=== PATIENT | female | born 1970 | race Caucasian/White ===

== ENCOUNTER → 2018-09-01 11:05 | Outpatient (CLI) | payer OTHER, SELFPAY ==
--- NOTE | 2018-09-01 11:25 | VDLE_ITS ---
Reason For Study: pain RIGHT LEFT GSV is normal. CFV is compressible, spontaneous, phasic, CFV is compressible, spontaneous, phasic, competent, and demonstrates normal competent and demonstrates normal augmentation. augmentation. FV is compressible, spontaneous, phasic, competent and demonstrates normal augmentation. POP V is compressible, spontaneous, phasic, competent and demonstrates normal augmentation. T/P Trunk is compressible. PTV is compressible. RT PerV is compressible. Procedure Exam performed in department. The exam was diagnostic. A preliminary report was called and/or faxed to Dr. Acuña. Interpretation Summary Deep veins of the right lower extremity are patent and compressible segmentally. There is no evidence of right lower extremity deep vein thrombosis. Valvular competence appears intact within the proximal deep venous system on the right . The right greater saphenous vein appears patent and compressible segmentally. Ordering Physician: Blair Acuña Performed By: Dominic Emerson RVT
== END ==
PROVIDERS: Family Provider Family Medicine; PCP Family Medicine; Referring Provider Orthopaedic Surgery; Visit Provider Orthopaedic Surgery
DX: M79.604 Pain in right leg (principal)
CPT/HCPCS: 93971

== ENCOUNTER → 2020-07-25 | Outpatient (CLI) | payer OTHER, SELFPAY ==
[2020-07-25 09:48] VITALS: BMI 42.3
[2020-07-25 11:04] LABS: ALB/GLOB Ratio 0.9 RATIO (0.9-2.4); AST(SGOT) 20 U/L (15-37); Alanine Aminotransfer ALT/SGPT 29 U/L (13-56); Albumin, Serum 3.9 g/dL (3.2-5.0); Alkaline Phosphatase 68 U/L (45-117); Anion Gap 6 (5-15); BUN 12 mg/dL (7-18); BUN/Creat Ratio 14.8 RATIO (10-20); Calcium,Total 8.8 mg/dL (8.5-10.1); Chloride 104 mmol/L (98-107); Cholesterol 285 mg/dL (200); Creatinine, Serum 0.81 mg/dL (0.55-1.02); EST Glomerular Filtration Rate 80 mL/min (>60); Est Glom Filt Rate - Afr Amer 97 mL/min (>60); Globulin 4.3 g/dL (2.2-4.2); Glucose 100 mg/dL (74-106); High Density Lipoprotein 38 mg/dL; Protein, Total 8.2 g/dL (6.4-8.2); Sodium Level 138 mmol/L (136-145); Triglycerides 334 mg/dL; Very Low Density Lipoprotein 67 mg/dL (5-40)
== END | disposition home or self-care (01) ==
LOC: LAB 10:14
PROVIDERS: PCP Family Medicine; Referring Provider Family Medicine; Visit Provider Family Medicine
DX: E78.5 Hyperlipidemia, unspecified (principal)
CPT/HCPCS: 36415; 80053; 80061

== ENCOUNTER 2020-10-23 12:10 | Emergency (ER) | payer OTHER, SELFPAY ==
[2020-07-25 09:48] VITALS: BMI 42.3
[2020-10-23] VITALS (7 sets, daily range): BP systolic 112–141; BP diastolic 62–101; PULSE 80–99; RESP 14–21; TEMP 36.9–37.2; O2SAT 94–96; BMI 42.5
--- NOTE | 2020-10-23 12:24 | CT_ITS ---
STUDY: CTA CHEST REASON FOR EXAM: Female, 50 years old. SOB, FEVER, FATIGUE, +COVID RADIATION DOSAGE (If Supplied By Facility): CTDIvol = ( 15.04 ) mGy, DLP = ( 466.14 ) mGycm TECHNIQUE: The examination was performed with the intravenous administration of IV 100mL Isovue-370. Post-processing of the angiographic images was performed, with multiplanar reformation and 3D reconstruction. Individualized dose optimization techniques were used for this CT. COMPARISON: None. FINDINGS: Normal enhancement of the main pulmonary artery and right and left pulmonary arteries. Normal enhancement of the bilateral peripheral pulmonary arteries. There is no demonstrated pulmonary embolism. Normal thoracic aorta and visualized great vessels. There is no demonstrated aortic dissection. Normal heart and pericardium. There are visualized mediastinal lymph nodes, which are within normal size limits, and with normal morphology. Normal hilar regions. Normal visualized trachea and bronchi. The lungs are well expanded. Patchy areas of groundglass appearance are seen in the preferential lateral distribution involving both upper and lower lobes bilaterally slightly worse on the right side. This is in keeping with Covid 19 Pneumonic infiltrates. Patchy atelectasis and/or infiltrate seen at the lung bases as well. Normal pleura. Normal chest wall structures. Normal osseous structures. Normal visualized upper abdomen. CT/CTA Chest W/WO Contrast IMPRESSION: Patchy areas of groundglass appearance in a preferentially lateral distribution involving both lungs as described. This is suggestive of Covid 19 pneumonic process. Electronically Signed: Sonido Rai, at 15:00 EST , Service support ,
--- NOTE | 2020-10-23 12:26 | ED.DCSUM_ITS ---
History of Present Illness Informant: Patient Onset: Days Context: Gradual Onset Timing: Continuous Current Severity: Moderate Maximum Severity: Moderate Narrative: Patient is a 50-year-old female is otherwise healthy the presents to the emergency department shortness of breath. Patient states that she began with Covid symptoms about 10 days ago. She tested positive on Friday. She states s he felt like she was starting to turn the corner over the weekend. However, today, she states that she had rather significant shortness of breath. She states she felt like she cannot catch her breath and was having coughing fits. She also admits to pain when she takes a deep breath. She is still been having intermittent fevers. Patient has no history of immunosuppression. She has no history of underlying lung disease. She does not smoke. She states that she has had some cramping abdominal pain and diminished oral intake. She has not on any daily medications. Prior similar symptoms: No Recent Illness/Hospitalization: No <Blair Birmingham - Last Filed: 10/23/20 14:12> <Timoteo Diop - Last Filed: 10/23/20 16:05> Chief Complaint: Shortness of Breath Past Medical History Prior records reviewed: Yes Past Medical History: None Surgical History: noncontributory Smoking Status: Never smoker <Blair Birmingham - Last Filed: 10/23/20 14:12> <Timoteo Diop - Last Filed: 10/23/20 16:05> - Allergies and Home Meds Allergies/Adverse Reactions: Allergies No Known Allergies Allergy (Verified 10/23/20 12:13) Primary Care Physician: Delores Pina MD [Primary Care Provider] - Review of Systems General: Reports: Fever, Malaise. Denies: Chills, Sweats Eyes: Denies: Visual changes - bilaterally, Diplopia ENT: Denies: Rhinorrhea, Sore throat Cardiovascular: Denies: Chest pain, Palpitations Respiratory: Reports: Dyspnea, Cough. Denies: Dyspnea on exertion Gastrointestinal: Reports: Nausea. Denies: Abdominal pain, Vomiting, Diarrhea, Melena, Hematochezia Genitourinary: Denies: Dysuria, Hematuria, Frequency Musculoskeletal: Denies: Back pain, Extremity Pain Skin: Denies: Rash, Wounds Neurological: Denies: Headache, Weakness, Numbness <Blair Birmingham - Last Filed: 10/23/20 14:12> Physical Exam Vital Signs/Narrative: Vital Signs Temp Pulse Resp BP Pulse Ox 10/23/20 12:11 98.9 F 99 18 141/101 H 96 Inital Vital Signs reviewed: Yes General: Well nourished, Well developed, No Acute Distress Head: Normocephalic, Atraumatic Eyes: Perrl, EOMI ENT: Moist mucous membranes, No rhinorrhea Neck: Supple, Nontender Cardiovascular: Regular rate, Regular rhythm, No murmurs Respiratory: No distress, CTA bilaterally, Chest nontender Abdomen: Soft, Nontender, Nondistended, Normal bowel sounds Back: Nontender, Normal Inspection Extremities: Nontender, No edema Skin: Normal color, No rash Neurological: Alert, Oriented x3, Cranial nerves II-XII grossly intact, Normal Strength, Normal Sensation Psychological: Normal affect, Normal Mood <Blair Birmingham - Last Filed: 10/23/20 14:12> Vital Signs/Narrative: Vital Signs Temp Pulse Resp BP Pulse Ox 10/23/20 14:10 80 19 H 113/62 94 10/23/20 14:00 98.9 F 80 21 H 113/62 95 10/23/20 13:13 98.8 F 84 16 120/80 96 10/23/20 13:02 83 14 10/23/20 12:11 98.9 F 99 18 141/101 H 96 <Timoteo Diop - Last Filed: 10/23/20 16:05> Diagnostic/Tx/Re-eval Abnormal Lab Results 10/23/20 10/23/20 10/23/20 12:50 12:50 12:50 WBC 5.3 RBC 4.53 Hgb 13.5 Hct 41.7 MCV 92.1 MCH 29.8 MCHC 32.4 RDW Std Deviation 44.6 H RDW Coeff of George 13.2 Plt Count 221 MPV 9.4 Immature Gran % (Auto) 0.400 Neut % (Auto) 62.3 Lymph % (Auto) 28.2 Coffee % (Auto) 7.0 Eos % (Auto) 1.9 Baso % (Auto) 0.2 Absolute Neuts (auto) 3.3 Absolute Lymphs (auto) 1.49 Nucleated RBC % 0 Fibrinogen 531 H Sodium 139 Potassium 3.6 Chloride 106 Carbon Dioxide 26.0 Anion Gap 7 BUN 8 Creatinine 0.83 Estim Creat Clear Calc 62.55 Est GFR (MDRD) Af Amer 94 Est GFR (MDRD) Non-Af 78 BUN/Creatinine Ratio 9.6 L Glucose 98 Lactic Acid Calcium 8.9 Total Bilirubin 0.40 AST 18 ALT 31 Alkaline Phosphatase 78 Lactate Dehydrogenase 174 Total Protein 8.4 H Albumin 3.9 Globulin 4.5 H Albumin/Globulin Ratio 0.9 10/23/20 12:50 WBC RBC Hgb Hct MCV MCH MCHC RDW Std Deviation RDW Coeff of George Plt Count MPV Immature Gran % (Auto) Neut % (Auto) Lymph % (Auto) Coffee % (Auto) Eos % (Auto) Baso % (Auto) Absolute Neuts (auto) Absolute Lymphs (auto) Nucleated RBC % Fibrinogen Sodium Potassium Chloride Carbon Dioxide Anion Gap BUN Creatinine Estim Creat Clear Calc Est GFR (MDRD) Af Amer Est GFR (MDRD) Non-Af BUN/Creatinine Ratio Glucose Lactic Acid 2.0 Calcium Total Bilirubin AST ALT Alkaline Phosphatase Lactate Dehydrogenase Total Protein Albumin Globulin Albumin/Globulin Ratio - Medical Decision Making Patient is Covid positive. She states that she felt like she was turning the corner but today had worsening shortness of breath. She also describes pain when taking a deep breath. She is not hypoxic or tachypneic. Metabolic work-up was pursued and is relatively unremarkable. Patient was given an inhaler with improvement of aeration. Screening labs are unremarkable. The patient has not had any hypoxia. Given the acute worsening of her dyspnea, I did want to rule out pulmonary embolus. Patient will undergo CTA. Disposition will be made after completion of CTA. If this does not show any significant acute process, I do feel that the patient can safely be discharged. She is agreeable with this plan of care. Impression 1. COVID-19 2. Shortness of breath <Blair Birmingham - Last Filed: 10/23/20 14:12> - Medical Decision Making Patient signed out to me due to end of shift. Did follow-up on the CT scan which did not show any evidence of pulmonary embolism. There was some patchy of consolidations consistent with coronavirus. She has been placed on Decadron. On reevaluation prior to discharge she is satting well on room air. Does not appear in any acute distress. Return precautions were discussed with her. Otherwise have her follow-up with her PCP. Patient understands and is agreeable this plan. She is discharged home in stable condition. All questions were answered. <Timoteo Diop - Last Filed: 10/23/20 16:05> ED Disposition <Blair Birmingham - Last Filed: 10/23/20 14:12> <Timoteo Diop - Last Filed: 10/23/20 16:05> - Plan for ED Patient: Instructions: Coronavirus Disease 2019 (COVID-19): Overview, Coronavirus Disease 2019 (COVID-19): Caring for Yourself or Others Prescriptions: Dexamethasone [Decadron] 6 mg PO DAILY 5 Days #5 tab Prescription Printed Referrals: Delores Pina MD [Primary Care Provider] -
[2020-10-23 13:32] LABS: ALB/GLOB Ratio 0.9 RATIO (0.9-2.4); AST(SGOT) 18 U/L (15-37); Alanine Aminotransfer ALT/SGPT 31 U/L (13-56); Albumin, Serum 3.9 g/dL (3.2-5.0); Alkaline Phosphatase 78 U/L (45-117); Anion Gap 7 (5-15); BUN 8 mg/dL (7-18); BUN/Creat Ratio 9.6 RATIO (10-20); Calcium,Total 8.9 mg/dL (8.5-10.1); Chloride 106 mmol/L (98-107); Creatinine, Serum 0.83 mg/dL (0.55-1.02); EST Glomerular Filtration Rate 78 mL/min (>60); Est Glom Filt Rate - Afr Amer 94 mL/min (>60); Estimated Creatinine Clearance 62.55 ml/min; Globulin 4.5 g/dL (2.2-4.2); Glucose 98 mg/dL (74-106); LDH 174 U/L (84-246); Potassium 3.6 mmol/L (3.5-5.1); Protein, Total 8.4 g/dL (6.4-8.2); Sodium Level 139 mmol/L (136-145)
[2020-10-23 13:33] LABS: Absolute Lymphocyte Count 1.49 X10^3/uL (0.83-4.51); Absolute Neutrophil Count 3.3 X10^3/uL (2.0-7.7); Basophil# 0.01 X10^3/uL; Basophil% 0.2 % (0-1); Eosinophils% 1.9 % (0-5); Hematocrit 41.7 % (37-47); Hemoglobin 13.5 g/dL (12.0-15.0); Lymphocyte # 1.49 X10^3/ul (4.0); Lymphocyte % 28.2 % (19-41); Mean Corp Hgb Conc 32.4 g/dL (32-36); Mean Corpuscular Hgb 29.8 pg (27.0-32.0); Mean Corpuscular Volume 92.1 fL (81-99); Mean Platelet Vol. 9.4 fl (6.2-12.0); Monocyte# 0.37 X10^3/uL; NRBC Flagged by Analyzer 0 % (0-5); Neutrophil # 3.29 X10^3/uL (2.7-7.7); Neutrophil % 62.3 % (47-70); Platelet Count 221 K/mm3 (150-450); RBC Distribution Width CV 13.2 % (11.6-14.6); RBC Distribution Width SD 44.6 fl (35.1-43.9); Red Blood Count 4.53 M/mm3 (4.2-5.4); White Blood Count 5.3 K/mm3 (4.4-11.0)
[2020-10-23 13:39] LABS: Fibrinogen 531 mg/dl (203-444)
[2020-10-23 17:09] LABS: Reflex Lactate? Y
== END 2020-10-23 16:15 | disposition home or self-care (01) ==
LOC: ED 13:21
PROVIDERS: Emergency Provider Emergency Medicine; PCP Family Medicine
DX: U07.1 COVID-19 (principal); R06.02 Shortness of breath
CPT/HCPCS: 71275; 80053; 83605; 83615; 85025; 85384; 87040; 94640; 99284; Q9967

== ENCOUNTER 2021-02-06 13:30 | Outpatient (RCR) | payer OTHER, SELFPAY ==
[2020-10-23 12:11] VITALS: BMI 42.5
== END 2021-02-14 23:59 ==
LOC: NS 13:30
PROVIDERS: PCP Family Medicine; Visit Provider Family Medicine
DX: Z71.3 Dietary counseling and surveillance (principal); E66.9 Obesity, unspecified; Z68.41 Body mass index [BMI] 40.0-44.9, adult
CPT/HCPCS: 97802

== ENCOUNTER 2021-06-01 08:30 | Outpatient (RCR) | payer OTHER, SELFPAY ==
[2020-10-23 12:11] VITALS: BMI 42.5
--- NOTE | 2021-05-23 15:17 | HP.PTEVAL ---
Patient's Visit Information ANH DYER is a 50 year old F referred to Physical Therapy by Dr. Delores Pina MD with a diagnosis of LBP. Date of Evaluation: 05/23/21 Physical Therapist: Nakul Rae, BUDDY, OCS, CSCS - Visit Plan Frequency: 2x /Week Duration: 4-6 Weeks Plan: 2x/week for 4-6 weeks for. 1. Meredith ext bias LB ROM and mobs as needed. 2. postural focus with core strength. 3. stretch ITB, HS, hip flexors. Progress to HEP and body mechanics. - Subjective Pain and numbness lateral left leg and has been there [id number] since she had her kids 19 yrs ago. Over the years has seen chiropractor and he helps but cannot go regularly. Feels kind of cold for years. Has had NCT and no nerve damage last year. Has tried gabapentin and doesn't help. No ortho, spine or pain management for back. This pain is worse sitting, walking and was bad on vacation as it felt like it was on fire in [facility]. standing in line hurts. Can swim and ride bike but cannot walk nad run as it hurts adn gets numby like a toothache. No diagnostics or MRIs. Has not really had it treated otherwise. L LB hurts also and gets 3/10 daily but worse with yardwork and it pinches. Bck and leg gets worse at same time. Basic ADLs are no problem. She is really active outside and cannot work on mej[place] but she does it anyway. No regular exercise specific to back. Has tried pressups which help at times. 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 Sitting adn standing too long make her worse. - Pain LBP Pain Intensity (Out of 10): 2 Pain Intensity Range: 0, 7 Comment: into left leg numbness - Objective Walks lita, larryers I. L/S AROM ext painful L, L SB painful L, R SB OK, Flexion OK. Posture is flat lordosis and kyphotic t/s. P pressure relieves L posterior back pain. reflexes 2/3 patella adn achilles. Sensation LE WNL to gross light touch. Strength LE 5/5. core strength 4/5. PPU decrease pain with walking and increase AROM LB. Feels looser. - Goals Goal 1:: Full L/s AROM ext adn L sb without pain Goal Time Frame: 4-6 Weeks Goal 2:: Patient feel 75% better in overall pain with no leg symptoms and 2/10 at worst in LB Goal Time Frame: 4-6 Weeks Goal 3:: Oswestry score of 5 or less. Goal Time Frame: 4-6 Weeks Goal 4:: I appropr HEP to minimize future problems Goal Time Frame: 4-6 Weeks - Rehabilitation Potential Physical Therapy Diagnosis: LBP with radiculopathy. Rehabilitation Potential: Good - Anticipated Interventions Patient/Client Instruction: Educate patient on: Condition For the Purpose of:: To decrease pain, To increase ROM, To improve muscle performance and motor function Therapeutic Exercise to Include: Strength training, Balance training, Flexibilty training, Dynamic Lumbar Stabilization, Meredith Exercises For the Purpose of:: To decrease pain, To increase ROM, To improve muscle performance and motor function, To increase tolerance to activity/condition/position, To improve ability of physical actions for home/community/work/leisure Manual Therapy Techniques to Include: Mobilization, Soft tissue mobilization For the Purpose of:: To decrease pain, To increase ROM Thank you for the opportunity to evaluate your patient. For Medicare and Medicare HMO plans, please review the plan of care and approve it. It will need to be FAXED BACK to us at [phone] for Medicare purposes. For Medicare only, by signing this I certify the plan of care. Please let me know if there are questions or concerns regarding this plan of care. Physician Signature: Date:
--- NOTE | 2021-08-02 17:50 | HP.PTDCNRP_ITS ---
ANH DYER was seen in my office for initial evaluation on 05/23/21. The following Plan of Care was established for this patient: Initial Frequency: 2x /Week Initial Duration: 4-6 Weeks Patient/Client Instruction: Educate patient on: Condition For the Purpose of:: To decrease pain, To increase ROM, To improve muscle performance and motor function Therapeutic Exercise to Include: Strength training, Balance training, Flexibilty training, Dynamic Lumbar Stabilization, Eleazar Exercises For the Purpose of:: To decrease pain, To increase ROM, To improve muscle performance and motor function, To increase tolerance to activity /condition/position, To improve ability of physical actions for home/community/work/leisure Manual Therapy Techniques to Include: Mobilization, Soft tissue mobilization For the Purpose of:: To decrease pain, To increase ROM This patient was last seen in our office 06/01/21. Pertinent comments regarding their Physical therapy will appear below: Pt seen 3 visits of POC but cancelled the last two stating she was going to the doctor for dizzyness. at this point, it has been over 2 months and I will disocntinue due to nonattendance. At this point I will be discontinuing this patient from physical therapy. I would be happy to see this patient again in the future if found appropriate by the physician. Thank you! Nakul Rae, DPT, OCS, CSCS Balance/Gait/Functional tests - Balance/Special Test Scores Oswestry Low Back Score: 22
== END 2021-06-01 19:00 | disposition home or self-care (01) ==
LOC: PT 08:30
PROVIDERS: PCP Family Medicine; Referring Provider Family Medicine; Visit Provider Family Medicine
DX: M54.9 Dorsalgia, unspecified (principal)
CPT/HCPCS: 97014; 97110; 97161; 97530; G0283

== ENCOUNTER → 2022-03-26 | Outpatient (CLI) | payer OTHER, SELFPAY ==
[2022-03-26 17:56] LABS: Absolute Lymphocyte Count 3.62 X10^3/uL (0.83-4.51); Absolute Neutrophil Count 5.9 X10^3/uL (2.0-7.7); Basophil# 0.04 X10^3/uL; Basophil% 0.4 % (0-1); Eosinophil# 0.19 X10^3/uL; Eosinophils% 1.8 % (0-5); Hematocrit 40.8 % (37-47); Hemoglobin 13.5 g/dL (12.0-15.0); Lymphocyte # 3.62 X10^3/ul (0.83-4.51); Lymphocyte % 34.9 % (19-41); Mean Corp Hgb Conc 33.1 g/dL (32-36); Mean Corpuscular Hgb 30.9 pg (27.0-32.0); Mean Corpuscular Volume 93.4 fL (81-99); Mean Platelet Vol. 9.3 fl (6.2-12.0); Monocyte# 0.55 X10^3/uL; Monocyte% 5.3 % (0-10); NRBC Flagged by Analyzer 0 % (0-5); Neutrophil # 5.92 X10^3/uL (2.7-7.7); Neutrophil % 57.2 % (47-70); Platelet Count 408 K/mm3 (150-450); RBC Distribution Width CV 13.3 % (11.6-14.6); RBC Distribution Width SD 45.6 fl (35.1-43.9); Red Blood Count 4.37 M/mm3 (4.2-5.4); White Blood Count 10.4 K/mm3 (4.4-11.0)
[2022-03-26 18:24] LABS: AST(SGOT) 13 U/L (15-37); Alanine Aminotransfer ALT/SGPT 20 U/L (13-56); Cholesterol 214 mg/dL (200); High Density Lipoprotein 54 mg/dL; Thyroid Stim Hormone (TSH) 1.91 uIU/mL (0.358-3.74); Triglycerides 163 mg/dL; Very Low Density Lipoprotein 33 mg/dL (5-40)
[2022-03-26 18:31] LABS: Hemoglobin A1c 5.9 % (3.8-5.6)
== END | disposition home or self-care (01) ==
LOC: MFPLAB 15:51
PROVIDERS: PCP Family Medicine; Referring Provider Family Medicine; Visit Provider Family Medicine
DX: E78.5 Hyperlipidemia, unspecified (principal); E66.01 Morbid (severe) obesity due to excess calories
CPT/HCPCS: 36415; 80061; 83036; 84443; 84450; 84460; 85025

== ENCOUNTER → 2022-09-11 | Outpatient (CLI) | payer OTHER, SELFPAY ==
[2022-09-11 10:03] LABS: Hematocrit 41.8 % (37-47); Hemoglobin 13.9 g/dL (12.0-15.0); Mean Corp Hgb Conc 33.3 g/dL (32-36); Mean Corpuscular Hgb 30.9 pg (27.0-32.0); Mean Corpuscular Volume 92.9 fL (81-99); Mean Platelet Vol. 9.6 fl (6.2-12.0); Platelet Count 365 K/mm3 (150-450); RBC Distribution Width SD 44.2 fl (35.1-43.9); White Blood Count 7.9 K/mm3 (4.4-11.0)
[2022-09-11 10:36] LABS: AST(SGOT) 13 U/L (15-37); Alanine Aminotransfer ALT/SGPT 21 U/L (13-56); Alkaline Phosphatase 76 U/L (45-117); Anion Gap 5 (5-15); BUN 13 mg/dL (7-18); Calcium,Total 9.3 mg/dL (8.5-10.1); Chloride 104 mmol/L (98-107); Cholesterol 204 mg/dL (200); Creatinine, Serum 0.82 mg/dL (0.55-1.02); EST Glomerular Filtration Rate 79 mL/min (>60); Est Glom Filt Rate - Afr Amer 96 mL/min (>60); Globulin 4.2 g/dL (2.2-4.2); Glucose 116 mg/dL (74-106); High Density Lipoprotein 51 mg/dL; Potassium 3.7 mmol/L (3.5-5.1); Protein, Total 8.2 g/dL (6.4-8.2); Sodium Level 138 mmol/L (136-145); Triglycerides 167 mg/dL; Very Low Density Lipoprotein 33 mg/dL (5-40)
== END | disposition home or self-care (01) ==
LOC: MTLAB 07:16
PROVIDERS: PCP Family Medicine; Referring Provider Nurse Practitioner Family; Visit Provider Nurse Practitioner Family
DX: Z01.818 Encounter for other preprocedural examination (principal); E78.5 Hyperlipidemia, unspecified
CPT/HCPCS: 36415; 80053; 80061; 85027

== ENCOUNTER → 2022-09-23 | Outpatient (CLI) | payer OTHER, SELFPAY ==
--- NOTE | 2022-09-23 17:55 | CT_ITS ---
EXAM: CT LEFT LOWER EXTREMITY WITHOUT INTRAVENOUS CONTRAST CLINICAL INDICATION: [facility] KNEE planning TECHNIQUE: Helically acquired images were obtained of the left lower extremity without intravenous contrast. 2-D reformats were performed by the technologist. CTDIvol = ( 18.76 ) mGy, DLP = ( 1442.89 ) mGycm This CT exam was performed using one or more of the following dose reduction techniques: automated exposure control, adjustment of the mA and/or kV according to patient size, and/or use of iterative reconstruction technique. This report was created using [employer] report [employer] technology. COMPARISON: None. FINDINGS: Moderate to severe tricompartmental osteoarthrosis of the knee, worse at the medial femorotibial compartment No acute or healing fracture or malalignment or any unusual lytic or sclerotic lesions of bone. No significant suprapatellar joint effusion. Mild degenerative changes are seen at the left hip joint and pubic symphysis. Enthesopathy at the left greater trochanter. No soft tissue masses or other abnormalities. CT/Extremity Lower without Contra IMPRESSION: 1. Study performed for preoperative planning purposes in a patient with moderate to severe osteoarthrosis of the knee. 2. Incidental finding of an elongated septated fluid collection along the medial capsule of the knee joint, larger component below the joint line. Consider pes anserinus or tibial collateral bursitis and less likely ganglion cyst or abscess. MRI may provide additional useful information. Electronically Signed: Ravi Pennington MD at 4:51 EST ,
== END | disposition home or self-care (01) ==
LOC: CT 17:53
PROVIDERS: PCP Family Medicine; Referring Provider Orthopaedic Surgery; Visit Provider Orthopaedic Surgery
DX: M17.12 Unilateral primary osteoarthritis, left knee (principal)
CPT/HCPCS: 73700

== ENCOUNTER 2022-10-02 15:23 | Observation (INO) | payer OTHER, SELFPAY ==
[2022-09-27 16:40] LABS: Magnesium 2.1 mg/dL (1.6-2.6)
[2022-10-02] VITALS (13 sets, daily range): BP systolic 114–165; BP diastolic 64–86; PULSE 63–88; RESP 10–20; TEMP 36.2–37.1; O2SAT 92–99; BMI 42.7
[2022-10-02 08:00] LABS: Internal QC Validated? YES +Cl - CLEAR BKGD; Pregnancy, Urine Negative Negative
[2022-10-02] MEDS: Lactated Ringers 1,000 ML 999 ML IV ×2 (08:06→11:00)
[2022-10-02] MEDS: Magnesium 1 GM over 15 mins IV (08:07)
[2022-10-02] MEDS: Acetaminophen 500 MG Tablet 1000 MG PO ×2 (08:28→21:15)
[2022-10-02] MEDS: Celecoxib 200 MG Capsule 400 MG PO (08:28)
[2022-10-02] MEDS: Gabapentin 600 MG Tablet PO (08:29)
[2022-10-02] MEDS: Lactated Ringers 1,000 ML 75 ML IV (09:03)
[2022-10-02 09:10] LABS: Bedside Glucose 155 mg/dL (74-106)
--- NOTE | 2022-10-02 10:00 | KNEE_PTH ---
PATIENT: ANH DYER LOC: [id number] U#:[id number] AGE/SX: 52/F ROOM: [facility] [place] RE10/02/[address]: Dr. Blair Acuña DO : 1970 BED: 1 DIS: 10/03/2022 SPEC #: [id number] RECD: 10/02/22 13:29 STATUS: NUNU REVerena #: [id number] CHIKA: 10/02/22 10:[address]: Blair Acuña DEPT: SURGICAL PATHOLOGY RECD BY: Deirdre Carlton ENTERED: 10/02/22 13:58 SP TYPE: TOTAL KNEE OTHR DR: Dr. 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 AM:kojo 10/07/2022 MICROSCOPIC DESCRIPTION Slides are reviewed. GROSS DESCRIPTION Received is one container designated bone and soft tissue left knee. The specimen consists of multiple fragments of bang-yellow bone measuring in aggregate 10 x 9 x 4 cm. No soft tissue is identified. A number of bony fragments contain articular surfaces consistent with tibial plateau and femoral condyle and displaying prominent osteophyte formation, eburnation, and bone erosion. Mash Tub Cooker Operator sections are submitted in one cassette after decalcification. / BRI:cc 10/02/2022 TC:5 CPT: 49691, 52840
[2022-10-02] MEDS: Cefazolin 2 GM in 0.9% Normal Saline 100 ML IV (10:56)
[2022-10-02] MEDS: dexAMETHasone 10 MG/ML Vial IV (12:13)
[2022-10-02] MEDS: TXA in NS 100ml (Placed in Wound) OPERA.SITE (12:23)
--- NOTE | 2022-10-02 12:38 | PCM.OPRPT ---
Report of Operation Date of Procedure: 10/02/22 Pre-Operative Diagnosis: OA left knee Post-Operative Diagnosis: same Surgery/Procedure Performed:: Left TKR Surgeon: Blair Acuña customer service administrator: Canelo Vega Type of Anesthesia: Spinal Anesthesiologist: Vijay Lawrence Estimated Blood Loss (mL): 20 cc Fluids Replaced: 1000 cc crystalloid Admit VTE Documentation VTE Present on Admission: No VTE Mechan Device Prophylaxis: SCD's and Thigh High KIP Hose VTE Pharm Prophylaxis ordered?: Yes
--- NOTE | 2022-10-02 13:29 | RAD_ITS ---
STUDY: X-RAY - LEFT KNEE REASON FOR EXAM: Female, 52 years old. Post op -- AP and Lateral xray of operative knee in PACU TECHNIQUE: 2 view(s) of the knee. COMPARISON: None. FINDINGS: Normal visualized distal femur. Normal visualized proximal tibia and fibula. Normal proximal tibiofibular articulation. The patient is status post left total knee replacement. There is good alignment. Postoperative soft tissue changes. RAD/Knee 1 or 2 Views IMPRESSION: Status post left total knee replacement. There is good alignment. Postoperative soft tissue changes. Electronically Signed: Sonido Rai MD at 13:57 EST ,
[2022-10-02] MEDS: Enoxaparin 40 MG/0.4 ML Syringe SC ×2 (14:35→14:47)
[2022-10-02 14:41] LABS: Bedside Glucose 152 mg/dL (74-106)
--- NOTE | 2022-10-02 15:46 | SUR.PHASEII ---
ADDUCTOR BLOCK INSERTED BY DR. BLAIR TO THE LEFT LEG.
[2022-10-02] MEDS: Lactated Ringers 1,000 ML 125 ML IV (16:45)
[2022-10-02] MEDS: Cefazolin 1 GM/50 ML BAG IV (18:37)
[2022-10-02] MEDS: oxyCODONE 5 MG Tablet PO (18:37)
[2022-10-02] MEDS: Atorvastatin Calcium 20 MG Tablet PO (21:15)
[2022-10-02] MEDS: Senna/Docusate Sodium 1 Tablet 2 TABLET PO (21:15)
[2022-10-02] MEDS: Ondansetron 4 MG/2 ML Vial IV (22:43)
[2022-10-02] MEDS: 0.9% Saline Lock 10 ML Syringe IV (22:43)
[2022-10-03] MEDS: oxyCODONE 5 MG Tablet PO ×2 (01:26→10:25)
[2022-10-03 02:22] VITALS: BP 131/98; PULSE 102; RESP 16; TEMP 36.6; O2SAT 97
[2022-10-03] MEDS: Cefazolin 1 GM/50 ML BAG IV (02:41)
[2022-10-03] MEDS: 0.9% Saline Lock 10 ML Syringe IV ×2 (05:10→09:18)
[2022-10-03] MEDS: Acetaminophen 500 MG Tablet 1000 MG PO (05:11)
[2022-10-03 06:39] LABS: Hematocrit 34.7 % (37-47); Hemoglobin 11.4 g/dL (12.0-15.0); Mean Corp Hgb Conc 32.9 g/dL (32-36); Mean Corpuscular Hgb 30.6 pg (27.0-32.0); Mean Platelet Vol. 9.4 fl (6.2-12.0); Platelet Count 356 K/mm3 (150-450); RBC Distribution Width CV 13.1 % (11.6-14.6); RBC Distribution Width SD 44.4 fl (35.1-43.9); Red Blood Count 3.73 M/mm3 (4.2-5.4); White Blood Count 15.3 K/mm3 (4.4-11.0)
[2022-10-03 07:06] LABS: Anion Gap 8 (5-15); BUN 11 mg/dL (7-18); BUN/Creat Ratio 13.8 RATIO (10-20); Calcium,Total 8.5 mg/dL (8.5-10.1); Chloride 103 mmol/L (98-107); EST Glomerular Filtration Rate 81 mL/min (>60); Est Glom Filt Rate - Afr Amer 98 mL/min (>60); Estimated Creatinine Clearance 63.48 ml/min; Glucose 184 mg/dL (74-106); Potassium 3.8 mmol/L (3.5-5.1); Sodium Level 137 mmol/L (136-145)
--- NOTE | 2022-10-03 07:40 | PCM.PN.ORT ---
Subjective Subjective Patient sitting at bedside sleeping in the chair. Patient easily awakes. Patient states her pain is been very well managed. Patient denies chest pain, shortness of breath, calf pain, nausea vomiting. Patient states she feels very good and he would like to be discharged home today. Objective Data Objective Data Vital Signs: Vital Signs Temp Pulse Resp BP Pulse Ox O2 Del Method O2 Flow Rate 97.9 F 102 H 16 131/98 H 97 Room Air 4 10/03/22 02:22 10/03/22 02:22 10/03/22 02:22 10/03/22 02:22 10/03/22 02:22 10/03/22 02:22 10/02/22 14:28 Oxygen Flow Rate (L/min) 4 Oxygen Delivery Method Room Air Weight: 102.512 kg Body Mass Index (BMI) 42.7 Intake & Output: Intake and Output for Last 24 Hours 10/01/22 10/02/22 10/03/22 23:59 23:59 23:59 Intake Total 4692.42 / 4692.42 808.33 / 808.33 Balance 4692.42 / 4692.42 808.33 / 808.33 Lab / Micro Data Result Diagrams: 10/03/22 05:45 10/03/22 05:45 Labs: Laboratory Results - last 24 hr 10/02/22 07:50: Urine Test Negative 10/02/22 08:15: POC Glucose 155 H 10/02/22 14:22: POC Glucose 152 H 10/03/22 05:45: WBC 15.3 H, RBC 3.73 L, Hgb 11.4 L, Hct 34.7 L, MCV 93.0, MCH 30.6, MCHC 32.9, RDW Std Deviation 44.4 H, RDW Coeff of George 13.1, Plt Count 356, MPV 9.4 10/03/22 05:45: Sodium 137, Potassium 3.8, Chloride 103, Carbon Dioxide 26.0, Anion Gap 8, BUN 11, Creatinine 0.80, Estim Creat Clear Calc 63.48, Est GFR (MDRD) Af Amer 98, Est GFR (MDRD) Non-Af 81, BUN/Creatinine Ratio 13.8, Glucose 184 H, Calcium 8.5 Micro: Microbiology 09/27/22 15:53 Swab (Method) Nasal Screen MRSA/MSSA - Final Radiography Diagnostic Testing: Radiology Impression Knee X-Ray 10/02/22 13:29 IMPRESSION: Status post left total knee replacement. There is good alignment. Postoperative soft tissue changes. Electronically Signed: Sonido Rai MD at 13:57 EST , Physical Exam Narrative Upon exam I found patient sleeping comfortably in a chair at bedside. She was easy to awake alert oriented. Patient no no respiratory distress, speaking in full sentences. Patient has full range of motion of the upper extremities with good muscle tone and strength. The incision is clean dry intact. The dressing has a small spot of blood on the distal end of the dressing. Otherwise no active bleeding. No calf tenderness. Neurovascular she is otherwise intact. Const alert and oriented x3 General Appearance: cooperative HEENT normocephalic Eyes PERRL Resp normal respiratory effort Effort and Inspection: able to speak in complete sentences Extremity normal capillary refill Neuro CN's II-XII intact bilaterally Psych mental status grossly normal and affect normal Assessment & Plan Assessment/Plan (1) Status post total left knee replacement not using cement: PLAN: 1. Continue all pain medication as prescribed 2. Continue Xarelto as prescribed for 2 weeks, then will change to 81 mg aspirin 1 p.o. every 12 hours for 2 weeks 3. Physical therapy this a.m. discharge after therapy 4. Encourage incentive spirometry 5. Follow-up as scheduled see pink sheet 6. Discharge home today we will do outpatient therapy at [facility] [place]
--- NOTE | 2022-10-03 07:44 | DCINST_ITS ---
Discharge Instructions Diet Discharge Diet: No restrictions Activity Discharge Activity: May Not Drive and May Shower May shower in (days): 3 May resume sexual activity in: No Restrictions Ice area for (Minutes): 45 Weight Bearing Status: Weight bearing as tolerated Keep extremity elevated above heart level: Operative Extremity Dressing / Incision Call your doctor if your incision/area has: Continuous Slow Oozing, Sudden Increased Bleeding, Increased Pain/ Swelling and Increased Redness Call your doctor if you observe: Fever of 101 or Higher, Coldness, Increased Pain, Numbness or Tingling and Change in Color Change Dressing in: leave in place till F/U Remove Dressing in: do not remove dressing Follow Up Care Please Follow Up With: Canelo Vega PA-C When: As scheduled Test Results: Test results from this visit will be discussed in further detail at your follow- up appointment, if applicable. Discharge Plan Admission Admit Date/Time: 10/02/22 15:23 Primary Reason for Your Visit: Left total knee Attending Provider: Blair Acuña Primary Care Provider: Delores Pina Discharge Orders/Prescriptions Prescriptions: New acetaminophen 500 mg Tablet 1,000 mg PO Q8 30 Days Qty: 180 0RF Continued acyclovir 400 mg tablet 400 mg PO BID PRN (Reason: rash) fluoxetine 40 MG capsule 40 mg PO DAILY rosuvastatin 10 MG tablet 10 mg PO QHS meloxicam 15 mg tablet 15 mg PO DAILY Label Comments: TAKE 1 TABLET BY MOUTH EVERY DAY oxycodone 5 mg tablet 5 - 10 mg PO Q4H PRN PRN (Reason: Pain) Label Comments: TAKE 1 TO 2 TABLETS BY MOUTH EVERY 4 HOURS Eliquis 2.5 mg tablet 2.5 mg PO BID Referrals / Follow Up: Delores Pina MD [Primary Care Provider] - Disposition Disposition (needs filled in before D/C Order can be placed): Home, Self Care
[2022-10-03 09:01] VITALS: O2SAT 98
[2022-10-03] MEDS: Ondansetron 4 MG/2 ML Vial IV (09:18)
[2022-10-03 10:00] VITALS: BP 143/66; PULSE 72; RESP 18; TEMP 37; O2SAT 94
--- NOTE | 2022-10-03 10:03 | CASEMGMT ---
Addendum entered by Celina Blackwell 10/03/22 10:57: Pt states Friday at 8am is fine for [facility] as far as transportation. TC to [facility], spoke with Kimberly, appt is for 8:30am and pt should arrive 10 minutes early. Pt aware. TC to [facility] clinical desk, requested order be faxed to [facility] for pt to start tomorrow. TC back to [facility], spoke with Aniya to cancel her PT appt. Trf'd to Almita, she states she has the order and is faxing it to [facility] now. Pt aware of the above. Original Note: ALMA BEAULIEU Assessment: Face to Face with pt for initial transition planning/care coordination assessment. ALMA BEAULIEU introduced self and role at [facility], pt voices understanding and consents to assessment. Pt is A/O x4 and answers all questions appropriately at this time. Pt sitting up in chair with nurse at bedside. Care providers, pharmacy, and demographics verified/updated. Admitting Dx: L total knee with [place] PCP:Yovani Specialists:tiffany Acuña Preferred Pharmacy: [facility] Retail Insurance: [employer] Prescription Benefit: yes LNOK: Jeannette Ward, mother; Gaurang Gloria, sig other Living Arrangements: Pt lives with sig other and two adult sons in a single story house with 2 steps to enter from the front. Pt reports she was I in ADL's prior to surgery. Transportation: Pt drives self. Pt mother will provide transportation post surgery. DME/HHC/SNF: Pt has a FWW and [facility] at home. Pt did not use AD prior to surgery. Pt denies hx of HHC or SNFs. Pt states no concerns with going home at time of dc. She states that she has outpt therapy set up at [facility] on Friday but would like to change this to [facility]. She asks for ALMA BEAULIEU to make an appt on Friday in the afternoon. TC to [facility]. The only available appt is 8 am on Friday or 9a or 11a on Friday. ALMA BEAULIEU back into pt room, pt states she does not know if her mother can take her if it is not in the afternoon. Offered to try to secure the hospital van for pt, pt declined. She asked ALMA BEAULIEU to check back with her to see if she obtain transportation, otherwise she states she will keep her appt at [facility] Pt states no further concerns/needs. CM to follow. Advised pt to ask CM if any further question/concerns/needs arise, voices understanding. Pt Goal: Home with outpt therapy Plan: Home with outpt therapy
[2022-10-03] MEDS: Senna/Docusate Sodium 1 Tablet 2 TABLET PO (10:23)
[2022-10-03] MEDS: Fluoxetine HCl 40 MG CAPSULE PO (10:23)
[2022-10-03 13:46] VITALS: BP 132/88; PULSE 78; RESP 18; TEMP 36.7; O2SAT 98
== END 2022-10-03 13:46 | disposition home or self-care (01) ==
LOC: SDC 15:46 → MS3 15:46
PROVIDERS: Anesthesiology; Admitting Provider Orthopaedic Surgery; PCP Family Medicine; Referring Provider Orthopaedic Surgery; Visit Provider Orthopaedic Surgery
PROC: 0SRD0JZ Replacement of Left Knee Joint with Synthetic Substitute, Open Approach (ICD-10-PCS; CPT 27447; principal; 2022-10-02 09:30)
DX: M17.12 Unilateral primary osteoarthritis, left knee (principal); D68.51 Activated protein C resistance; Z86.718 Personal history of other venous thrombosis and embolism; E78.00 Pure hypercholesterolemia, unspecified; Z79.899 Other long term (current) drug therapy
CPT/HCPCS: 27447; 01402; S2900; 64447; 36415; 73560; 80048; 81025; 82962; 83735; 85027; 87081; 88305; 88311; 96361; 96365; 96366; 96375; 96376; 97110; 97116; 97162; 97166; 97530; 99218; 99251; C1776; J7120; A4216; G0378; G0463; J2405; J3475

== ENCOUNTER 2022-10-04 08:29 | Outpatient (RCR) | payer OTHER, SELFPAY ==
--- NOTE | 2022-10-04 09:44 | HP.PTEVAL ---
Patient's Visit Information ANH DYER is a 52 year old F referred to Physical Therapy by BOBO Stoddard with a diagnosis of L knee TKA 10/02/22. Date of Evaluation: 10/04/22 Physical Therapist: Rafael Gordon PT, ATC - Visit Plan Frequency: 2-3x /Week Duration: 4-6 Weeks Plan: L knee PROM/mobs, stretching and strengthening, balance and proprio, gait training, stair negotiation, nustep, and HEP - Subjective DOS: 10/02/22. Pt reports she had a L TKA performed at that time. Pt reports she is in severe pain at this time as the pain block wore off last night. Pt reports she had a long Hx of L knee pain prior to having this surgery consisting of meniscus repair and several cortisone injections. Pt reports she is very queesy today and does not feel well. Pt believes it is secondary to her pain meds. Pt reports no tingling or numbness in her L LE. Pt reports sleep difficulty secondary to pain. Pt has stairs to get into her house that she has to negotiate one step at a time. Pt lives in a [employer] style house. 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 Pt reports she likes to go on walks and ride her bike, which she is unable to do at this time secondary to pain. Pt also notes she is unable to shop for groceries secondary to pain. 6/10 pain at rest, 10/10 at worst (getting out of bed this morning) - Pain L knee Pain Intensity (Out of 10): 6 Pain Intensity Range: 10 - Objective Neuro: B LE sensation is WNL to light touch. Palpation: Mild swelling noted. No signs of infection. Girth at joint line: L knee 47 cm, R knee 42 cm. ROM: L knee 0-20-50, R knee 0-110. MMT: R knee 30 #F throughout, L knee 0#F throughout - Balance/Special Test Scores Lower Extremity Functional Score: 3 - Goals Goal 1:: Decrease L knee pain x 50% to aid with sleep Goal Time Frame: 4-6 Weeks Goal 2:: Increase L knee strength x 20#F to aid with stair negotiation Goal Time Frame: 4-6 Weeks Goal 3:: Increase L knee ROM x 40 degrees to aid with restoring a more normalized gait pattern Goal Time Frame: 4-6 Weeks Goal 4:: I with HEP Goal Time Frame: 4-6 Weeks - Rehabilitation Potential Physical Therapy Diagnosis: Pt has L knee pain, weakness, and limited ROM secondary to L TKA Rehabilitation Potential: Good - Anticipated Interventions Patient/Client Instruction: Educate patient on: Condition, Plan of Care For the Purpose of:: To improve self management Therapeutic Exercise to Include: Strength training, Endurance training, Balance training, Flexibilty training, Gait and locomotor training, Passive ROM, Active ROM, Dynamic Lumbar Stabilization For the Purpose of:: To decrease pain, To increase ROM, To improve muscle performance and motor function Cryotherapy (ice pack, ice massage): Yes For the Purpose of:: To decrease pain Thank you for the opportunity to evaluate your patient. For Medicare and Medicare HMO plans, please review the plan of care and approve it. It will need to be FAXED BACK to us at [phone] for Medicare purposes. For Medicare only, by signing this I certify the plan of care. Please let me know if there are questions or concerns regarding this plan of care. Physician Signature: Date:
--- NOTE | 2023-02-27 17:57 | HP.PT.NRP ---
ANH DYER was seen in my office for initial evaluation on 10/04/22. The following Plan of Care was established for this patient: Initial Frequency: 2-3x /Week Initial Duration: 4-6 Weeks Patient/Client Instruction: Educate patient on: Condition, Plan of Care For the Purpose of:: To improve self management Therapeutic Exercise to Include: Strength training, Endurance training, Balance training, Flexibilty training, Gait and locomotor training, Passive ROM, Active ROM, Dynamic Lumbar Stabilization For the Purpose of:: To decrease pain, To increase ROM, To improve muscle performance and motor function Cryotherapy (ice pack, ice massage): Yes For the Purpose of:: To decrease pain This patient was last seen in our office . Pertinent comments regarding their Physical therapy will appear below: Pt was evaluated for L knee pain on the date of 11/01/22. Pt has not returned through todays date and is discontinued at this time. At this point I will be discontinuing this patient from physical therapy. I would be happy to see this patient again in the future if found appropriate by the physician. Thank you! Rafael Gordon, PT, ATC Balance/Gait/Functional tests - Balance/Special Test Scores Lower Extremity Functional Score: 3
== END 2022-10-04 19:00 | disposition home or self-care (01) ==
LOC: PT 08:29
PROVIDERS: PCP Family Medicine; Referring Provider Physician Assistant Surgical; Visit Provider Physician Assistant Surgical
DX: Z47.1 Aftercare following joint replacement surgery (principal); M17.12 Unilateral primary osteoarthritis, left knee; Z96.652 Presence of left artificial knee joint
CPT/HCPCS: 97161

== ENCOUNTER → 2023-03-18 | Outpatient (CLI) | payer OTHER, SELFPAY ==
[2023-03-18 18:33] LABS: AST(SGOT) 22 U/L (15-37); Alanine Aminotransfer ALT/SGPT 28 U/L (13-56); Cholesterol 212 mg/dL (200); High Density Lipoprotein 52 mg/dL; Triglycerides 181 mg/dL; Very Low Density Lipoprotein 36 mg/dL (5-40)
== END | disposition home or self-care (01) ==
LOC: MFPLAB 16:59
PROVIDERS: PCP Family Medicine; Visit Provider Family Medicine
DX: E78.5 Hyperlipidemia, unspecified (principal)
CPT/HCPCS: 36415; 80061; 84450; 84460

== ENCOUNTER → 2023-04-04 | Outpatient (CLI) | payer OTHER, SELFPAY ==
--- NOTE | 2023-04-04 14:33 | ART_ITS ---
Reason For Study: Decreased left femoral pulse Procedure A bilateral lower extremity continuous wave Doppler with analog waveform analysis,segmental pressures,and ankle brachial indexes without exercise. Left Segmental Pressures Left brachial= 150mmHg. Left posterior tibial artery = 153mmHg. Left dorsalis pedis artery = 138mmHg. The left thigh waveforms are triphasic. The left posterior tibial artery waveforms are triphasic. The left dorsalis pedis waveforms are triphasic. Right Segmental Pressures Right brachial= 140mmHg. Right posterior tibial artery = 151mmHg. Right dorsalis pedis artery = 145mmHg. The right posterior tibial artery waveforms are triphasic. The right dorsalis pedis waveforms are triphasic. Indices The right ankle brachial index by the posterior tibial artery is 1.01. The right ankle brachial index by the dorsalis pedis is 0.97. The left ankle brachial index by the posterior tibial artery is 1.02. The left ankle brachial index by the dorsalis pedis is 0.92. VL/Lower Ext Art Exam w/o Exercis Interpretation Summary Right ÁNGELA 1.01, normal. Doppler/PVR waveforms of the right leg normal at rest. Left ÁNGELA 1.02, normal. Doppler/PVR waveforms of the left leg normal at rest. Ordering Physician: Delores Pina Referring Physician: Delores Pina M.D. Performed By: Jonny Orta RVT
== END | disposition home or self-care (01) ==
LOC: CVS 14:29
PROVIDERS: PCP Family Medicine; Referring Provider Family Medicine; Visit Provider Family Medicine
DX: R09.89 Other specified symptoms and signs involving the circulatory and respiratory systems (principal)
CPT/HCPCS: 93923

== ENCOUNTER → 2024-03-30 | Outpatient (CLI) | payer BC, SELFPAY ==
[2024-03-30 18:38] LABS: Absolute Lymphocyte Count 3.28 X10^3/uL (0.83-4.51); Absolute Neutrophil Count 4.9 X10^3/uL (2.0-7.7); Basophil# 0.03 X10^3/uL; Basophil% 0.3 % (0-1); Eosinophil# 0.27 X10^3/uL; Hematocrit 41.4 % (37-47); Hemoglobin 13.8 g/dL (12.0-15.0); Lymphocyte # 3.28 X10^3/ul (0.83-4.51); Lymphocyte % 36.4 % (19-41); Mean Corp Hgb Conc 33.3 g/dL (32-36); Mean Corpuscular Hgb 30.3 pg (27.0-32.0); Mean Corpuscular Volume 90.8 fL (81-99); Mean Platelet Vol. 8.9 fl (6.2-12.0); Monocyte# 0.54 X10^3/uL; NRBC Flagged by Analyzer 0 % (0-5); Neutrophil # 4.87 X10^3/uL (2.7-7.7); Neutrophil % 54.1 % (47-70); Platelet Count 389 K/mm3 (150-450); RBC Distribution Width CV 13.3 % (11.6-14.6); RBC Distribution Width SD 43.8 fl (35.1-43.9); Red Blood Count 4.56 M/mm3 (4.2-5.4)
[2024-03-30 19:27] LABS: Vitamin D,25 Hydroxy 28.4 ng/mL
[2024-03-30 19:43] LABS: AST(SGOT) 16 U/L (15-37); Alanine Aminotransfer ALT/SGPT 20 U/L (13-56); Albumin, Serum 4.1 g/dL (3.2-5.0); Alkaline Phosphatase 70 U/L (45-117); Anion Gap 7 (5-15); BUN 15 mg/dL (7-18); BUN/Creat Ratio 19.4 RATIO (10-20); Calcium,Total 9.4 mg/dL (8.5-10.1); Chloride 103 mmol/L (98-107); Creatinine, Serum 0.78 mg/dL (0.55-1.02); EST Glomerular Filtration Rate 83 mL/min (>60); Est Glom Filt Rate - Afr Amer 101 mL/min (>60); Globulin 4.3 g/dL (2.2-4.2); Glucose 84 mg/dL (74-106); Potassium 3.5 mmol/L (3.5-5.1); Protein, Total 8.4 g/dL (6.4-8.2); Sodium Level 137 mmol/L (136-145)
== END | disposition home or self-care (01) ==
LOC: MTLAB 16:31
PROVIDERS: PCP Family Medicine; Referring Provider Family Medicine; Visit Provider Family Medicine
DX: E66.01 Morbid (severe) obesity due to excess calories (principal); R73.9 Hyperglycemia, unspecified
CPT/HCPCS: 36415; 80053; 82306; 83036; 84443; 85025

== ENCOUNTER → 2024-10-05 | Outpatient (CLI) | payer BC, SELFPAY ==
[2024-10-05 10:15] LABS: Follicle Stimulating Hormone 48.3 mIU/mL; Luteinizing Hormone 22.8 mIU/mL
[2024-10-06 04:08] LABS: PROGESTERONE <0.1 ng/mL (.)
[2024-10-08 15:09] LABS: Estrogen, Total, Serum 84 pg/mL (.)
== END | disposition home or self-care (01) ==
PROVIDERS: PCP Family Medicine; Referring Provider Family Medicine; Visit Provider Family Medicine
DX: R23.2 Flushing (principal)
CPT/HCPCS: 36415; 82672; 83001; 83002; 84144

== ENCOUNTER → 2024-10-26 | Outpatient (CLI) | payer BC, SELFPAY ==
--- NOTE | 2024-10-26 15:43 | RAD_ITS ---
EXAM: XR LUMBOSACRAL SPINE, 2 OR 3 VIEWS CLINICAL INDICATION: back pain radiating to left leg TECHNIQUE: Frontal and lateral views of the lumbar spine and sacrum. COMPARISON: CT abdomen and pelvis, 03/28/2010 FINDINGS: VERTEBRAE: Multilevel endplate osteophytosis and facet arthrosis. No fracture. Unilateral right L5 spondylolysis demonstrated on comparison CT. No spondylolisthesis. Preservation of the normal lumbar lordosis. SACRUM/COCCYX: Bilateral SI joint arthrosis. DISC SPACES: Multilevel intervertebral disc height loss. GASTROINTESTINAL TRACT: Normal as visualized. Included bowel gas pattern is non-obstructive. TUBES, LINES AND DEVICES: Bilateral tubal occlusion devices. RAD/Lumbar Spine 2 or 3 Views IMPRESSION: No fracture. Unilateral right L5 spondylolysis demonstrated on comparison CT. No spondylolisthesis. Degenerative changes. Electronically Signed: Sushant Lazo DO at 22:31 EST ,
[2024-10-26 19:02] LABS: Hemoglobin A1c 5.8 % (3.8-5.6)
== END | disposition home or self-care (01) ==
LOC: MTRAD 15:43 → MTLAB 15:56
PROVIDERS: PCP Family Medicine; Referring Provider Family Medicine; Visit Provider Family Medicine
DX: R20.0 Anesthesia of skin (principal); R20.2 Paresthesia of skin; R73.03 Prediabetes
CPT/HCPCS: 36415; 72100; 83036

== ENCOUNTER 2025-01-04 15:00 | Outpatient (RCR) | payer BC, SELFPAY ==
--- NOTE | 2024-12-23 16:54 | HP.PTEVAL_ITS ---
Patient's Visit Information Visit Information Visit Information: ANH DYER is a 54 year old F referred to Physical Therapy by BOBO Marquez with a diagnosis of RADICULOPATHY ,LUMBAR. Date of Evaluation: 12/23/24 Physical Therapist: Carmelo Arazte, PT, Cert MDT, OCS Visit Plan Frequency: 2x /Week Duration: 4 Weeks Plan: PT INTERVENTIONS DLS ,POSTURAL EX'S ,ACTIVITY MODIFICATION , BLE ST RENGTHENING AND MODALITIES Subjective Subjective: This 54 y/o female presents to physical therapy with with lumbar radiculopathy . Patient has had symptoms 2002 with symptoms worse with certain activities. Seen family DR tried gabapentin ,seen BOBO Fung did x-rays There is anterior listhesis of L4 on L5 of 6 mm on flexion views which is not present on extension. (spondylolisthesis). Location butuck/SI to lateral thigh to knee. Patient has h/o TKA 2021. Aggravating factors standing 5mins,AM ,lifting ,bending and walking causes paresthesia.PA wants MRI but will try PT. Alleviating factors test ,supine. Coughing/sneezing. Bowel/bladder-. Pain affects sleeping on side . Thus affects daily activity. Patient sees chiropractor . Patient has tried pain management. Patient pain affects QOL and function/job demands and general activity.. Patient goals decrease pain and MRI SOCIAL: significant other VOACTION: Teacher Pain Left Back: Pain Intensity (Out of 10): 4 Pain Intensity Range: 10 Left Lower Extremity: Pain Intensity (Out of 10): 4 Pain Intensity Range: 10 Objective Objective: POSTURE: mild forward posture PALPATION: unremarkable NEURO: c/o paresthesia/tingling left lateral thigh ,reflexes L3-4,L4-5,L5-S1 1/3 MMT: quads/hams 4/5 ,hip flexion 4/5 ,ankle 4/5 FLEXIBILITY: hams min tight LUMBAR ROM: flexion WFL ,extension mod loss pain ,side glides min loss Special Tests L/S Slump test left side: Negative L/S Slump test right side: Negative L/S Left Straight Leg Raise: Negative L/S Right Straight Leg Raise: Negative Lumbar Standing: Flexion - Mechanical Response: No effect Lumbar Standing: Flexion - Symptoms During Testing: No effect Lumbar Standing: Flexion - Symptoms After Testing: No effect Lumbar Standing: Extension - Mechanical Response: No effect Lumbar Standing: Extension - Symptoms During Testing: Increases Lumbar Standing: Extension - Symptoms After Testing: Worse Lumbar Standing: Right Side Glides - Mechanical Response: No effect Lumbar Standing: Right Side [place] - Symptoms During Testing: No effect Lumbar Standing: Right Side [place] - Symptoms After Testing: No effect Lumbar Standing: Left Side [place] - Mechanical Response: No effect Lumbar Standing: Left Side [place] - Symptoms During Testing: No effect Lumbar Standing: Left Side [place] - Symptoms After Testing: No effect Lumbar Lying: Flexion - Mechanical Response: No effect Lumbar Lying: Flexion - Symptoms During Testing: No effect Lumbar Lying: Flexion - Symptoms After Testing: No effect Lumbar Lying: Extension - Mechanical Response: No effect Lumbar Lying: Extension - Symptoms During Testing: Increases Lumbar Lying: Extension - Symptoms After Testing: No worse Balance/Special Test Scores Oswestry Low Back Score: 28 Goals Goal 1:: Patient to be I with HEP for back Goal Time Frame: 4-6 Weeks Goal 2:: Patient to improve lumbar ROM for function of recovery for job demands and ADLS Goal Time Frame: 4-6 Weeks Goal 3:: Patient to improve back oswestry score by by 5 points to improve QOL and function Goal Time Frame: 4-6 Weeks Goal 4:: Patient to demonstrate 50% improvement with less pain and improved function. Goal Time Frame: 4-6 Weeks Goal 5:: Patient to improve ability to stand > 10mins for function. Goal Time Frame: 4-6 Weeks Rehabilitation Potential Physical Therapy Diagnosis: This patient has lumbar radiculopathy due to possible spondylolisthesis with pain with positioning standing and motion testing thus benefit from skilled PT Rehabilitation Potential: Good Anticipated Interventions Patient/Client Instruction: Educate patient on: Condition and Plan of Care For the Purpose of:: To decrease pain, To increase ROM, To improve muscle performance and motor function, To improve ability to perform ADL's, To increase tolerance to activity/condition/position, To improve ability of physical actions for home/community/work/leisure, To improve health of tissue, To decrease soft tissue restriction, To increase flexibility/ROM, To reduce risk of recurrence, To prevent re-injury and To improve tolerance to ADL's Therapeutic Exercise to Include: Strength training, Body mechanics, Postural training, Flexibilty training and Dynamic Lumbar Stabilization For the Purpose of:: To decrease pain, To increase ROM, To improve muscle performance and motor function, To improve ability to perform ADL's, To increase tolerance to activity/condition/position, To improve ability of physical actions for home/community/work/leisure, To improve health of tissue, To decrease soft tissue restriction, To increase flexibility/ROM and To prevent re-injury TENS: Yes IF ES: Yes Cryotherapy (ice pack, ice massage): Yes Thermo therapy (hot pack): Yes Ultrasound (thermal/non thermal): Yes For the Purpose of:: To decrease pain, To increase ROM, To improve nutrient delivery to tissue, To increase oxygenation perfusion, To improve health of tissue and To decrease soft tissue restriction Text: Thank you for the opportunity to evaluate your patient. For Medicare and Medicare HMO plans, please review the plan of care and approve it. It will need to be FAXED BACK to us at [phone] for Medicare purposes. For Medicare only, by signing this I certify the plan of care. Please let me know if there are questions or concerns regarding this plan of care. Physician Signature: Date:
--- NOTE | 2025-03-23 09:36 | HP.PT.NRP ---
Patient Information Patient Information: ANH DYER was seen in my office for initial evaluation on 12/23/24. The following Plan of Care was established for this patient: POC Established Initial Frequency: 2x /Week Initial Duration: 4 Weeks Anticipated Interventions Patient/Client Instruction: Educate patient on: Condition and Plan of Care For the Purpose of:: To decrease pain, To increase ROM, To improve muscle performance and motor function, To improve ability to perform ADL's, To increase tolerance to activity/condition/position, To improve ability of physical actions for home/community/work/leisure, To improve health of tissue, To decrease soft tissue restriction, To increase flexibility/ROM, To reduce risk of recurrence, To prevent re-injury and To improve tolerance to ADL's Therapeutic Exercise to Include: Strength training, Body mechanics, Postural training, Flexibilty training and Dynamic Lumbar Stabilization For the Purpose of:: To decrease pain, To increase ROM, To improve muscle performance and motor function, To improve ability to perform ADL's, To increase tolerance to activity/condition/position, To improve ability of physical actions for home/community/work/leisure, To improve health of tissue, To decrease soft tissue restriction, To increase flexibility/ROM and To prevent re-injury TENS: Yes IF ES: Yes Cryotherapy (ice pack, ice massage): Yes Thermo therapy (hot pack): Yes Ultrasound (thermal/non thermal): Yes For the Purpose of:: To decrease pain, To increase ROM, To improve nutrient delivery to tissue, To increase oxygenation perfusion, To improve health of tissue and To decrease soft tissue restriction Last Seen Last Seen: This patient was last seen in our office . Pertinent comments regarding their Physical therapy will appear below: Patient was seen for PT for lumbar radiculopathy for DLS and postural ex's thus is d/c At this point I will be discontinuing this patient from physical therapy. I would be happy to see this patient again in the future if found appropriate by the physician. Thank you! Carmelo Arzate, PT, Cert MDT, OCS Balance/Gait/Functional tests Balance/Special Test Scores Oswestry Low Back Score: 28
== END 2025-01-04 19:00 | disposition home or self-care (01) ==
LOC: PT 15:00
PROVIDERS: PCP Family Medicine; Referring Provider Student in an Organized Health Care Education/Training Program; Visit Provider Student in an Organized Health Care Education/Training Program
DX: M54.16 Radiculopathy, lumbar region (principal)
CPT/HCPCS: 97110; 97162

== ENCOUNTER → 2025-01-28 | Outpatient (CLI) | payer BC, SELFPAY ==
--- NOTE | 2025-01-28 14:02 | RAD_ITS ---
EXAM: XR Right Clavicle Complete, 2 or More Views CLINICAL INDICATION: PAIN IN CLAVICLE TECHNIQUE: Frontal and lordotic views of the right clavicle. COMPARISON: No relevant prior studies available. FINDINGS: BONES/JOINTS: Mild degenerative change of the acromioclavicular joint. No acute fracture. No dislocation. SOFT TISSUES: Soft tissue swelling. RAD/Clavicle IMPRESSION: Degenerative changes as above. Reading Location: [facility]
== END | disposition home or self-care (01) ==
LOC: MTRAD 14:01
PROVIDERS: PCP Family Medicine; Referring Provider Family Medicine; Visit Provider Family Medicine
DX: M89.8X1 Other specified disorders of bone, shoulder (principal)
CPT/HCPCS: 73000